=== PATIENT | male | born 1970 | race Native Hawaiian/Other Pacific Islander ===

== ENCOUNTER 2025-01-20 11:29 | Emergency (ER) | payer OTHER, SELFPAY ==
[2025-01-20] VITALS (27 sets, daily range): BP systolic 114–159; BP diastolic 70–91; PULSE 57–74; RESP 16–29; TEMP 36.6; O2SAT 97–99; BMI 25.2
--- NOTE | 2025-01-20 11:39 | EKG_ITS ---
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
--- NOTE | 2025-01-20 11:39 | ED_ITS ---
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 He did not take anything for the pain prior to arrival here. He has no heart history nor has he had no heart testing in the past and denies diaphoresis, nausea, leg pain, leg swelling. Other than what is stated 14 point review of system is. Related Data Allergies Allergy/AdvReac Type Severity Reaction Status Date / Time No Known Allergies Allergy Verified 01/20/25 11:52 Review of Systems Review of Systems ROS Unobtainable: All systems reviewed & are unremarkable except as noted in HPI and below Patient History Social History Smoking Status: Former smoker Exam Narrative Exam Narrative: GENERAL: [54] year old patient appears stated age. Well-developed patient, in mild distress. HEAD: Atraumatic. Normocephalic. EYES: Pupils equal round and reactive. Extraocular motions intact. No scleral icterus. No injection or drainage. NECK: Trachea midline. Non tender CARDIOVASCULAR: Regular rate and rhythm without murmurs, gallops, or rubs. RESPIRATORY: Clear to auscultation. Breath sounds equal bilaterally. No wheezes, rales, or rhonchi. GASTROINTESTINAL: Abdomen soft, non-tender, nondistended. EXTREMITIES: No edema or joint tenderness. BACK: Nontender without deformity or crepitance. No flank tenderness. NEURO: AOx3. SKIN: No rash or erythema of visible areas Initial Vital Signs Initial Vital Signs: Vital Signs Temperature 97.8 F 01/20/25 11:35 Pulse Rate 74 01/20/25 11:35 Respiratory Rate 20 01/20/25 11:35 Blood Pressure 159/91 H 01/20/25 11:35 Pulse Oximetry 98 01/20/25 11:35 Oxygen Delivery Method Room Air 01/20/25 11:35 Scores HEART Score Heart Score history: Slightly Suspicious Heart Score EKG: Normal Heart Score Age: 45-64 years old Heart Score risk factors: No known risk factors Heart Score troponin: < or = to normal limit Heart Score Total: 1 Course Orders Ordered: ED Orders 01/20/25 11:41 Complete Blood Count AUTO DIFF Stat Comprehensive Metabolic Panel Stat Lipase Stat Magnesium Stat NT-proBNP (BNP-Adult 18+) Stat PTT Partial Thromboplastin Quan Stat Prothrombin Time INR Stat Troponin & CK Cardiac Panel Stat 01/20/25 11:43 XR chest 1V Stat EKG-12 Lead Stat 01/20/25 11:46 CT angio chest PE protocol Stat 01/20/25 13:22 EKG-12 Lead Stat 01/20/25 13:48 Trop I [Troponin I] Stat Nitroglycerin (Nitroglycerin 0.4 Mg Sl Tab) 0.4 mg SL [id number] PRN PRN Reason: Chest Pain Last Admin: 01/20/25 12:50 Dose: 0.4 mg Documented By: MARCIA Discontinued Medications Aspirin (Aspirin 81 Mg Chew Tab) 324 mg PO NOW ONE Stop: 01/20/25 11:44 Last Admin: 01/20/25 12:08 Dose: 324 mg Documented By: LESLYE Vital Signs Vital signs: Vital Signs - 8 hr 01/20/25 11:35 01/20/25 11:47 01/20/25 12:09 Temperature 97.8 F Pulse Rate 74 74 74 Respiratory Rate 20 27 H 29 H Blood Pressure 159/91 H Pulse Oximetry 98 99 99 Oxygen Delivery Method Room Air 01/20/25 12:09 01/20/25 12:30 01/20/25 12:30 Temperature Pulse Rate 62 Respiratory Rate 16 Blood Pressure 128/84 140/80 Pulse Oximetry 98 Oxygen Delivery Method 01/20/25 12:49 01/20/25 12:49 01/20/25 12:50 Temperature Pulse Rate 71 70 Respiratory Rate 17 Blood Pressure 127/85 127/85 Pulse Oximetry 98 Oxygen Delivery Method 01/20/25 12:50 01/20/25 12:50 01/20/25 12:55 Temperature Pulse Rate 71 72 Respiratory Rate 20 17 Blood Pressure 129/87 Pulse Oximetry 98 97 Oxygen Delivery Method 01/20/25 12:55 01/20/25 13:00 01/20/25 13:00 Temperature Pulse Rate 62 Respiratory Rate 16 Blood Pressure 120/74 123/73 Pulse Oximetry 97 Oxygen Delivery Method 01/20/25 13:05 01/20/25 13:05 01/20/25 13:10 Temperature Pulse Rate 57 L 58 L Respiratory Rate 16 16 Blood Pressure 122/75 Pulse Oximetry 97 98 Oxygen Delivery Method 01/20/25 13:10 01/20/25 13:15 01/20/25 13:15 Temperature Pulse Rate 59 L Respiratory Rate 16 Blood Pressure 125/76 122/70 Pulse Oximetry 98 Oxygen Delivery Method 01/20/25 13:20 01/20/25 13:20 Temperature Pulse Rate 67 Respiratory Rate 19 Blood Pressure 120/76 Pulse Oximetry 98 Oxygen Delivery Method MDM - Chest Pain Lab Data 01/20/25 11:41 01/20/25 11:41 Labs: Lab Results 01/20/25 01/20/25 Range/Units 11:41 13:48 WBC 8.9 (4.5-11.0) X10^3/uL RBC 4.99 (4.5-5.9) X10^6/uL Hgb 14.3 (13.5-17.5) g/dL Hct 43.0 (41-53) % MCV 86.2 (80-100) fL MCH 28.7 (26-34) PG MCHC 33.3 (30-36) % RDW 13.9 (11.6-14.8) % Plt Count 331 (150-400) X10^3/uL Neut % (Auto) 61.3 (50-75) % Lymph % (Auto) 25.8 (25-40) % [place] % (Auto) 7.1 (3-14) % Eos % (Auto) 4.4 H (2-4) % Baso % (Auto) 1.4 (0-2) % Neut # (Auto) 5400 (6606-0426) /uL Lymph # (Auto) 2300 (7333-1858) /uL [place] # (Auto) 600 (0-900) /uL Eos # (Auto) 400 (0-450) /uL Baso # (Auto) 100 (0-100) /uL PT 10.4 (9.4-12.5) SECONDS INR 0.9 (0.9-1.3) APTT 30 (25.1-36.5) SECONDS Sodium 140 (137-145) mmol/L Potassium 4.5 (3.4-5.1) mmol/L Chloride 104 (98-107) mmol/L Carbon Dioxide 28 (22-32) mmol/L BUN 14 (9-20) mg/dL Creatinine 1.06 (0.66-1.25) mg/dL Estimated GFR > 60 (>60) mL/min BUN/Creatinine Ratio 13.2 (6-22) Glucose 111 H (70-99) mg/dL Calcium 9.4 (8.4-10.2) mg/dL Magnesium 1.7 (1.6-2.3) mg/dL Total Bilirubin 0.6 (0.2-1.3) mg/dL AST 29 (17-59) IU/L ALT 33 (<50) IU/L Alkaline Phosphatase 93 (38-126) U/L Total Creatine Kinase 123 (55-170) U/L Troponin I < 0.012 < 0.012 (0.01-0.034) ng/mL NT-Pro-B Natriuret Pep < 20 (<125) pg/mL Total Protein 7.9 (6.3-8.2) g/dL Albumin 4.7 (3.5-5.0) g/dL Globulin 3.2 (1.7-4.1) g/dL Albumin/Globulin Ratio 1.5 (1.0-2.8) Lipase 157 (23-300) U/L Imaging Data CT scan - chest: Radiologist's Impression: [place] [address] CT Scan Report Signed Patient: Julito Archer MR#: [id number] : 1970 Acct:[id number] Age/Sex: 54 / M Date of Service: 01/20/25 Loc: ED Accession Number: [id number] Procedure: CT angio chest PE protocol Ordering Provider: Maikol Santoro D.O. PROCEDURE: CT ANGIO CHEST PE PROTOCOL INDICATIONS: chest pain radiating to back TECHNIQUE: After the administration of intravenous contrast, 2 mm thick sections acquired from the pulmonary apices to the posterior costophrenic angles. 3-dimensional maximum intensity projection (MIP) coronal and sagittal reformats were then acquired through the thorax. For radiation dose reduction, the following was used: automated exposure control, adjustment of mA and/or kV according to patient size. COMPARISON: None. FINDINGS: Image quality: Diagnostic. Pulmonary arteries: Pulmonary arteries are normal in size, and demonstrate no intraluminal filling defects to suggest central pulmonary embolism. Lower Neck: No enlarged lymph nodes. Thyroid: No thyroid nodules which require sonographic follow up, per consensus guidelines. Axillae: No enlarged lymph nodes. Chest Wall: Unremarkable. Bones: Metal anchors are seen in the left glenoid. Degenerative changes are seen in the left glenohumeral joint. No aggressive osseous lesion. Lungs and Pleura: No pneumothorax or pleural effusions. No consolidation or suspicious nodules. Heart: Heart size is normal. No pericardial effusion. Thoracic Vessels: No aortic aneurysm. No dissection is seen in the thoracic aorta. Mediastinum and Donna: No enlarged lymph nodes. Esophagus: No wall thickening. No hiatal hernia. Upper Abdomen: Visualized upper abdomen solid organs and bowel loops appear normal. IMPRESSION: No acute pulmonary embolus. No acute abnormality is seen in the chest. Chest x-ray: Radiologist's Impression: [address] [address] XRay Report Signed Patient: Julito Archer MR#: [id number] : 1970 Acct:[id number] Age/Sex: 54 / M Date of Service: 01/20/25 Loc: ED Accession Number: [id number] Procedure: XR chest 1V Ordering Provider: Maikol Santoro D.O. PROCEDURE: XR CHEST 1V INDICATIONS: Chest Pain TECHNIQUE: One view of the chest was acquired. COMPARISON: None. FINDINGS: Surgical changes and devices: Surgical anchors are seen in the left glenoid. Lungs and pleura: Lungs are clear. No pleural effusions or pneumothorax. Mediastinum: Mediastinal contours appear normal. Heart size is normal. Bones and chest wall: No suspicious bony lesions. Overlying soft tissues appear unremarkable. IMPRESSION: No acute cardiopulmonary abnormality is seen. ECG Data Interpretation: NSR HR 71 MN 156 QRS [address]-t wave change No previous EKG to compare against [facility] Narrative Medical decision making narrative: Vital signs, nurse triage note, medication list, previous ER visits, and all imaging studies reviewed. Chest x-ray and CTA chest showed no acute cardiopulmonary process. 2 EKG showed normal sinus rhythm with no STT wave changes. 2 sets of troponin were both normal with a heart score of 1. Patient given aspirin and 1 nitroglycerin here and he is chest pain-free now and hungry and wants to go. Differential diagnosis includes dissection, PE, aneurysm, STEMI, NSTEMI, chest wall pain, GERD, anxiety, unstable angina. Return with new or worsening symptoms follow up with PCP this week for re-evaluation in 1-2 days. Discharge Plan Departure Patient Disposition: Home Clinical Impression: Chest pain Qualifiers: Chest pain type: chest pain on breathing Qualified Code(s): R07.1 - Chest pain on breathing Instructions: DI for Chest Pain Activity Restrictions/Additional Instructions: Return with new or worsening symptoms. Follow up PCP this week for follow up and re-evaluation. Stand Alone Forms: Patient Portal/API
--- NOTE | 2025-01-20 11:43 | DI.RAD.S_ITS ---
PROCEDURE: XR CHEST 1V INDICATIONS: Chest Pain TECHNIQUE: One view of the chest was acquired. COMPARISON: None. FINDINGS: Surgical changes and devices: Surgical anchors are seen in the left glenoid. Lungs and pleura: Lungs are clear. No pleural effusions or pneumothorax. Mediastinum: Mediastinal contours appear normal. Heart size is normal. Bones and chest wall: No suspicious bony lesions. Overlying soft tissues appear unremarkable. IMPRESSION: No acute cardiopulmonary abnormality is seen. Approved by: Blane Coronado M.D. on 01/20/2025 at 12:52
--- NOTE | 2025-01-20 11:46 | DI.CT.S_ITS ---
PROCEDURE: CT ANGIO CHEST PE PROTOCOL INDICATIONS: chest pain radiating to back TECHNIQUE: After the administration of intravenous contrast, 2 mm thick sections acquired from the pulmonary apices to the posterior costophrenic angles. 3-dimensional maximum intensity projection (MIP) coronal and sagittal reformats were then acquired through the thorax. For radiation dose reduction, the following was used: automated exposure control, adjustment of mA and/or kV according to patient size. COMPARISON: None. FINDINGS: Image quality: Diagnostic. Pulmonary arteries: Pulmonary arteries are normal in size, and demonstrate no intraluminal filling defects to suggest central pulmonary embolism. Lower Neck: No enlarged lymph nodes. Thyroid: No thyroid nodules which require sonographic follow up, per consensus guidelines. Axillae: No enlarged lymph nodes. Chest Wall: Unremarkable. Bones: Metal anchors are seen in the left glenoid. Degenerative changes are seen in the left glenohumeral joint. No aggressive osseous lesion. Lungs and Pleura: No pneumothorax or pleural effusions. No consolidation or suspicious nodules. Heart: Heart size is normal. No pericardial effusion. Thoracic Vessels: No aortic aneurysm. No dissection is seen in the thoracic aorta. Mediastinum and Donna: No enlarged lymph nodes. Esophagus: No wall thickening. No hiatal hernia. Upper Abdomen: Visualized upper abdomen solid organs and bowel loops appear normal. IMPRESSION: No acute pulmonary embolus. No acute abnormality is seen in the chest. Approved by: Blane Coronado M.D. on 01/20/2025 at 12:59
[2025-01-20 11:52] LABS: Add Manual Diff / Slide Review NO; Hematocrit 43.0 % (41-53); Hemoglobin 14.3 g/dL (13.5-17.5); Lymphocytes Absolute Auto 2300 /uL (1100-4500); Mean Corpuscular HGB Conc 33.3 % (30-36); Mean Corpuscular Hemoglobin 28.7 PG (26-34); Mean Corpuscular Volume 86.2 fL (80-100); Platelet Count 331 X10^3/uL (150-400)
[2025-01-20 11:58] LABS: INR 0.9 (0.9-1.3); Prothrombin Time 10.4 SECONDS (9.4-12.5)
[2025-01-20 12:01] LABS: PTT Partial Thromboplastin Tim 30 SECONDS (25.1-36.5)
[2025-01-20 12:02] LABS: Alanine Aminotransferase 33 IU/L (<50); Albumin 4.7 g/dL (3.5-5.0); Albumin Globulin Ratio 1.5 (1.0-2.8); Alkaline Phosphatase 93 U/L (38-126); Blood Urea Nitrogen 14 mg/dL (9-20); Calcium 9.4 mg/dL (8.4-10.2); Carbon Dioxide 28 mmol/L (22-32); Chloride 104 mmol/L (98-107); Creatine Kinase 123 U/L (55-170); Estimated Glomerular Filt Rate > 60 mL/min (>60); Globulin 3.2 g/dL (1.7-4.1); Glucose 111 mg/dL (70-99); HEMOLYSIS 24 (0-50); Lipase 157 U/L (23-300); Magnesium 1.7 mg/dL (1.6-2.3); Potassium 4.5 mmol/L (3.4-5.1); Sodium 140 mmol/L (137-145); Total Protein 7.9 g/dL (6.3-8.2)
[2025-01-20] MEDS: ASPIRIN 81 MG CHEW TAB 324 MG PO (12:08)
[2025-01-20 12:15] LABS: NT-proBNP (BNP-Adult 18+) < 20 pg/mL (<125); Troponin I < 0.012 ng/mL (0.01-0.034)
[2025-01-20] MEDS: NITROGLYCERIN 0.4 MG SL TAB SL (12:50)
--- NOTE | 2025-01-20 14:05 | EKG_ITS ---
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
--- NOTE | 2025-01-20 14:06 | EKG_ITS ---
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
[2025-01-20 14:25] LABS: Troponin I < 0.012 ng/mL (0.01-0.034)
--- NOTE | 2025-01-21 11:51 | PC.NURSE ---
patient in requesting work release note.
== END 2025-01-20 14:50 | disposition home or self-care (01) ==
PROVIDERS: Emergency Provider Family Medicine
DX: R07.1 Chest pain on breathing (principal); Z87.891 Personal history of nicotine dependence
CPT/HCPCS: 36415; 71045; 71275; 80053; 82550; 83690; 83735; 83880; 84484; 85025; 85610; 85730; 93005; 93010; 99284; Q9967

== ENCOUNTER 2025-03-20 21:59 | Emergency (ER) | payer OTHER, SELFPAY ==
[2025-03-20 22:02] VITALS: BP 129/77; PULSE 60; RESP 15; TEMP 37.1; O2SAT 99; BMI 23.6
--- NOTE | 2025-03-20 22:05 | EKG_ITS ---
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
--- NOTE | 2025-03-20 22:14 | DI.RAD.S_ITS ---
PROCEDURE: XR CHEST 1V INDICATIONS: Chest Pain TECHNIQUE: One view of the chest was acquired. COMPARISON: [facility], CR, XR CHEST 1V, 01/20/2025, 11:41. FINDINGS: Surgical changes and devices: Left glenoid surgical anchors. Lungs and pleura: Lungs are clear. No pleural effusions or pneumothorax. Mediastinum: Mediastinal contours appear normal. Heart size is normal. Bones and chest wall: No suspicious bony lesions. Overlying soft tissues appear unremarkable. IMPRESSION: No acute cardiopulmonary abnormality is seen. Dictated by: Reji Grande M.D. on 03/20/2025 at 23:05 Approved by: Reji Grande M.D. on 03/20/2025 at 23:05
[2025-03-20] MEDS: ASPIRIN 81 MG CHEW TAB 324 MG PO (22:30)
[2025-03-20 22:39] LABS: INR 0.9 (0.9-1.3); Prothrombin Time 10.0 SECONDS (9.4-12.5)
[2025-03-20 22:42] LABS: PTT Partial Thromboplastin Tim 30 SECONDS (25.1-36.5)
[2025-03-20 22:43] LABS: Add Manual Diff / Slide Review NO; Hematocrit 40.0 % (41-53); Hemoglobin 13.2 g/dL (13.5-17.5); Lymphocytes Absolute Auto 2400 /uL (1100-4500); Mean Corpuscular HGB Conc 33.0 % (30-36); Mean Corpuscular Hemoglobin 28.2 PG (26-34); Mean Corpuscular Volume 85.6 fL (80-100); Platelet Count 277 X10^3/uL (150-400)
[2025-03-20 22:44] LABS: Alanine Aminotransferase 33 IU/L (<50); Albumin 4.1 g/dL (3.5-5.0); Albumin Globulin Ratio 1.6 (1.0-2.8); Alkaline Phosphatase 72 U/L (38-126); Blood Urea Nitrogen 18 mg/dL (9-20); Calcium 9.2 mg/dL (8.4-10.2); Carbon Dioxide 27 mmol/L (22-32); Chloride 103 mmol/L (98-107); Creatine Kinase 129 U/L (55-170); Estimated Glomerular Filt Rate > 60 mL/min (>60); Globulin 2.6 g/dL (1.7-4.1); Glucose 155 mg/dL (70-99); HEMOLYSIS < 15 (0-50); Lipase 125 U/L (23-300); Magnesium 1.7 mg/dL (1.6-2.3); Potassium 3.8 mmol/L (3.4-5.1); Sodium 137 mmol/L (137-145); Total Protein 6.7 g/dL (6.3-8.2)
[2025-03-20 22:55] LABS: NT-proBNP (BNP-Adult 18+) 20 pg/mL (<125); Troponin I < 0.012 ng/mL (0.01-0.034)
[2025-03-21 01:16] VITALS: BP 134/88; PULSE 78; O2SAT 97
--- NOTE | 2025-03-21 01:16 | ED_ITS ---
HPI - Chest Pain General Chief Complaint: Chest Pain Stated Complaint: chest pain, Lt arm+leg pain Time Seen by Provider: 03/21/25 01:14 Source: patient, RN notes reviewed and old records reviewed Mode of arrival: Ambulatory Limitations: no limitations History of Present Illness HPI narrative: 54-year-old male with no reported medical issues complaint of left chest pain x3 day and left lower extremity numbness and tingling starting 3 hours ago. Patient's chest pain states has been constant has not ever resolved. Left-sided without radiation. Nothing makes it better or worse. Denies shortness of breath. Denies nausea or vomiting denies any diaphoresis. No new swelling of the extremities. No fevers, no cold cough or congestion symptoms. No abdominal back or flank pain. Noted a little bit of tingling in his leg couple hours ago but states that is gone away. He is ambulating and moving it normally no numbness tingling or weakness currently. States he sometimes takes ibuprofen but no daily medications. Denies any prior surgeries. No known drug allergies. Prior tobacco use, no alcohol, no recreational drugs. Denies any family history of coronary artery disease, vascular/aneurysm, embolic history. Related Data Allergies Allergy/AdvReac Type Severity Reaction Status Date / Time No Known Allergies Allergy Verified 01/20/25 11:52 Review of Systems Review of Systems ROS Unobtainable: All systems reviewed & are unremarkable except as noted in HPI and below Patient History Social History Smoking Status: Former smoker Smoking Status: Former smoker Exam Narrative Exam Narrative: GENERAL: Alert and oriented x three, male in mild distress HEENT: Head normocephalic, atraumatic, EOMI, pupils reactive, face symmetric, moist mucous membranes NECK: Supple, full range of motion CARDIOVASCULAR: Regular rate and rhythm without murmurs, rubs or gallops. RESPIRATORY: Breath sounds equal bilaterally, no wheezes rales or rhonchi. ABDOMEN: Soft, nontender. Normoactive bowel sounds all 4 quadrants. No guarding or rebound, rigidity, no mass, no pulsatile mass or bruit : No CVA tenderness EXTREMITIES: Normal range of motion, no clubbing or edema. Neurovascularly intact. 2+ pulses bilateral upper and lower extremities. NEUROLOGICAL: Cranial nerves II through XII grossly intact. Moving all extremities SKIN: Warm, dry, no petechiae, no rashes or lesions. 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 - [employer] Stat 03/20/25 22:14 XR chest 1V Stat EKG-12 Lead Stat 03/20/25 22:25 Complete Blood Count AUTO DIFF Stat Comprehensive Metabolic Panel Stat Lipase Stat Magnesium Stat NT-proBNP (BNP-Adult 18+) Stat PTT Partial Thromboplastin Quan Stat Prothrombin Time INR Stat Troponin & CK Cardiac Panel Stat 03/21/25 00:30 Troponin I Urgent Discontinued Medications Aspirin (Aspirin 81 Mg Chew Tab) 324 mg PO NOW ONE Stop: 03/20/25 22:14 Last Admin: 03/20/25 22:30 Dose: 324 mg Documented By: BETH Vital Signs Vital signs: Vital Signs - 8 hr 03/20/25 22:02 03/21/25 01:16 03/21/25 01:18 Temperature 98.7 F Pulse Rate 60 78 65 Respiratory Rate 15 Blood Pressure 129/77 134/88 Pulse Oximetry 99 97 99 Oxygen Delivery Method Room Air 03/21/25 01:18 03/21/25 01:30 03/21/25 01:30 Temperature Pulse Rate 55 L Respiratory Rate 18 Blood Pressure 134/88 147/89 H Pulse Oximetry 98 Oxygen Delivery Method MDM - Chest Pain Lab Data 03/20/25 22:25 03/20/25 22:25 Labs: Lab Results 03/20/25 03/21/25 Range/Units 22:25 00:30 WBC 7.5 (4.5-11.0) X10^3/uL RBC 4.68 (4.5-5.9) X10^6/uL Hgb 13.2 L (13.5-17.5) g/dL Hct 40.0 L (41-53) % MCV 85.6 (80-100) fL MCH 28.2 (26-34) PG MCHC 33.0 (30-36) % RDW 13.2 (11.6-14.8) % Plt Count 277 (150-400) X10^3/uL Neut % (Auto) 53.1 (50-75) % Lymph % (Auto) 32.7 (25-40) % [place] % (Auto) 8.2 (3-14) % Eos % (Auto) 4.4 H (2-4) % Baso % (Auto) 1.6 (0-2) % Neut # (Auto) 4000 (2600-8697) /uL Lymph # (Auto) 2400 (2978-0083) /uL [place] # (Auto) 600 (0-900) /uL Eos # (Auto) 300 (0-450) /uL Baso # (Auto) 100 (0-100) /uL PT 10.0 (9.4-12.5) SECONDS INR 0.9 (0.9-1.3) APTT 30 (25.1-36.5) SECONDS Sodium 137 (137-145) mmol/L Potassium 3.8 (3.4-5.1) mmol/L Chloride 103 (98-107) mmol/L Carbon Dioxide 27 (22-32) mmol/L BUN 18 (9-20) mg/dL Creatinine 1.06 (0.66-1.25) mg/dL Estimated GFR > 60 (>60) mL/min BUN/Creatinine Ratio 17.0 (6-22) Glucose 155 H (70-99) mg/dL Calcium 9.2 (8.4-10.2) mg/dL Magnesium 1.7 (1.6-2.3) mg/dL Total Bilirubin 0.4 (0.2-1.3) mg/dL AST 24 (17-59) IU/L ALT 33 (<50) IU/L Alkaline Phosphatase 72 (38-126) U/L Total Creatine Kinase 129 (55-170) U/L Troponin I < 0.012 < 0.012 (0.01-0.034) ng/mL NT-Pro-B Natriuret Pep 20 (<125) pg/mL Total Protein 6.7 (6.3-8.2) g/dL Albumin 4.1 (3.5-5.0) g/dL Globulin 2.6 (1.7-4.1) g/dL Albumin/Globulin Ratio 1.6 (1.0-2.8) Lipase 125 (23-300) U/L ECG Data Attestation: I personally reviewed and interpreted this ECG as follows: Prior ECG tracings: available for review Interpretation: Sinus rhythm rate of 68 [place] 152 QRS of 76 QTC of 410, no acute ST elevation. Patient has prior from 01/20/2025 which shows sinus rhythm with no acute ST elevation or depression. MDM Narrative Medical decision making narrative: EKG shows sinus rhythm no acute changes from prior in January 2025. Labs show normal white count hemoglobin of 13.2 was 14.3 in January, platelets are 277. Coags are normal electrolytes BUN creatinine are normal glucose is 155 LFTs are negative troponins less than 0.012 with a BNP of less than 20 and a lipase of 125. Repeat troponin is less than 0.012 Chest x-ray shows no acute pulmonary abnormality. Patient had aspirin 324 mg. Reviewed findings with the patient, he feels comfortable returning home at this time. Discharge Plan Departure Patient Disposition: Home Clinical Impression: Chest pain Instructions: DI for Chest Pain Activity Restrictions/Additional Instructions: Follow up for recheck. Please return if you develop new chest pain or shortness of breath any lightheadedness or passing out, new swelling of your extremities, any new numbness tingling or weakness or other new or concerning changes. Referrals: Miscellaneous,Doctor, [Primary Care Provider, Medical] Stand Alone Forms: Patient Portal/API
[2025-03-21 01:18] VITALS: BP 134/88; PULSE 65; O2SAT 99
[2025-03-21 01:18] LABS: Troponin I < 0.012 ng/mL (0.01-0.034)
[2025-03-21 01:30] VITALS: BP 147/89; PULSE 55; RESP 18; O2SAT 98
== END 2025-03-21 02:18 | disposition home or self-care (01) ==
PROVIDERS: Emergency Provider Emergency Medicine
DX: R07.9 Chest pain, unspecified (principal); R20.0 Anesthesia of skin; Z87.891 Personal history of nicotine dependence
CPT/HCPCS: 36415; 71045; 80053; 82550; 83690; 83735; 83880; 84484; 85025; 85610; 85730; 93005; 99284

== ENCOUNTER → 2025-06-13 08:20 | Outpatient (CLI) | payer OTHER, SELFPAY ==
[2025-06-13 09:03] LABS: Add Manual Diff / Slide Review NO; Hematocrit 44.9 % (41-53); Hemoglobin 14.9 g/dL (13.5-17.5); Lymphocytes Absolute Auto 2200 /uL (1100-4500); Mean Corpuscular HGB Conc 33.2 % (30-36); Mean Corpuscular Hemoglobin 27.6 PG (26-34); Mean Corpuscular Volume 83.1 fL (80-100); Platelet Count 282 X10^3/uL (150-400)
[2025-06-13 09:18] LABS: Hemoglobin A1C% w Est Avg Glu 5.9 % (4.0-6.0)
[2025-06-13 09:19] LABS: Alanine Aminotransferase 26 IU/L (<50); Albumin 4.8 g/dL (3.5-5.0); Albumin Globulin Ratio 1.6 (1.0-2.8); Alkaline Phosphatase 89 U/L (38-126); Blood Urea Nitrogen 18 mg/dL (9-20); Calcium 9.3 mg/dL (8.4-10.2); Carbon Dioxide 23 mmol/L (22-32); Chloride 104 mmol/L (98-107); Cholesterol 249 mg/dL (140-199); Estimated Glomerular Filt Rate > 60 mL/min (>60); Globulin 3.0 g/dL (1.7-4.1); Glucose 99 mg/dL (70-99); HDL Cholesterol 75 mg/dL (40-60); HEMOLYSIS < 15 (0-50); Potassium 4.5 mmol/L (3.4-5.1); Sodium 137 mmol/L (137-145); Total Protein 7.8 g/dL (6.3-8.2); Triglycerides 77 mg/dL (35-150)
[2025-06-13 09:44] LABS: TSH w/ Reflex to FT4 0.76 uIU/mL (0.47-4.68)
== END ==
PROVIDERS: PCP Family Medicine; Referring Provider Family Medicine; Visit Provider Family Medicine
DX: Z13.0 Encounter for screening for diseases of the blood and blood-forming organs and certain disorders involving the immune mechanism (principal); R73.03 Prediabetes
CPT/HCPCS: 36415; 80053; 80061; 83036; 84443; 85025